=== PATIENT | female | born 1955 | race Caucasian/White ===

== ENCOUNTER → 2016-10-17 | Outpatient (CLI) | payer BC, OTHER ==
[~2016-10-17] MED LIST: CLX20 PO; CMD5 PO; CZR50 PO; OXYC-57 PO; OXYSR10 PO; SYN175 PO
[2016-10-17 13:40] LABS: THYROID STIMULATING HORMONE 1.5 uIu/ml (0.300-4.500)
== END | disposition home or self-care (01) ==
LOC: C.LABMFLN 08:08
PROVIDERS: ATTEND Internal Medicine Endocrinology, Diabetes & Metabolism
DX: E06.3 Autoimmune thyroiditis (principal); E03.9 Hypothyroidism, unspecified

== ENCOUNTER → 2017-10-11 | Outpatient (CLI) | payer OTHER ==
[~2017-10-11] MED LIST changes: +CALC1CHW71 PO; +CLOP1TAB15 PO; +HYDR12.55 PO; +LEVO137T3 PO; +LOSA1TAB38 PO; +MULT-506 PO; +NITR-5 PO; +OXYC-90 PO; +PANT1TAB4 PO; +POLY335019 PO; +TRAM-453 PO; +TURM500T PO
[2017-10-11 12:16] LABS: BASO % 1.1 %; BASO ABS # 0.06 K/uL (0-0.2); EOS % 6.5 %; EOS ABS # 0.36 K/uL (0-0.5); HEMATOCRIT 38.1 % (37-47); IG# 0.01 K/uL (0.00-0.02); LYMPH % 32.6 %; LYMPH ABS # 1.81 K/uL (1.2-3.4); MEAN CELL VOLUME 87.2 fL (80-100); MEAN CORPUSCULAR HEMOGLOBIN 27.5 pg (25-34); MEAN CORPUSCULAR HGB CONC 31.5 g/dl (32-36); MEAN PLATELET VOLUME 10.1 fL (7.4-10.4); MONO % 7.4 %; MONO ABS # 0.41 K/uL (0.11-0.59); NEUT % 52.2 %; NEUT ABS # 2.91 K/uL (1.4-6.5); PLATELET COUNT 224 K/uL (130-400); RED CELL DISTRIBUTION WIDTH CV 14.1 % (11.5-14.5); RED CELL DISTRIBUTION WIDTH SD 45.5 fL (36.4-46.3); WHITE BLOOD COUNT 5.56 K/uL (4.8-10.8)
== END | disposition home or self-care (01) ==
LOC: C.LAB 11:37
PROVIDERS: ATTEND Orthopaedic Surgery
DX: M25.461 Effusion, right knee (principal)

== ENCOUNTER → 2017-12-13 | Outpatient (CLI) | payer OTHER ==
[~2017-12-13] MED LIST changes: -CALC1CHW71 PO; -CLOP1TAB15 PO; -HYDR12.55 PO; -LEVO137T3 PO; -LOSA1TAB38 PO; -MULT-506 PO; -NITR-5 PO; -OXYC-90 PO; -PANT1TAB4 PO; -POLY335019 PO; -TRAM-453 PO; -TURM500T PO
[2017-12-13 12:22] LABS: BASO % 0.6 %; BASO ABS # 0.03 K/uL (0-0.2); EOS % 6.3 %; EOS ABS # 0.34 K/uL (0-0.5); HEMATOCRIT 39.7 % (37-47); HEMOGLOBIN 12.2 g/dL (12.0-16.0); IG# 0.01 K/uL (0.00-0.02); LYMPH % 25.1 %; LYMPH ABS # 1.36 K/uL (1.2-3.4); MEAN CELL VOLUME 85.6 fL (80-100); MEAN CORPUSCULAR HEMOGLOBIN 26.3 pg (25-34); MEAN CORPUSCULAR HGB CONC 30.7 g/dl (32-36); MEAN PLATELET VOLUME 10.4 fL (7.4-10.4); MONO % 8.7 %; MONO ABS # 0.47 K/uL (0.11-0.59); NEUT % 59.1 %; PLATELET COUNT 251 K/uL (130-400); RED CELL DISTRIBUTION WIDTH CV 14.2 % (11.5-14.5); WHITE BLOOD COUNT 5.41 K/uL (4.8-10.8)
[2017-12-13 13:24] LABS: ALBUMIN 3.7 gm/dl (3.4-5.0); ALT/SGPT 24 U/L (12-78); AST/SGOT 17 U/L (15-37); BLOOD UREA NITROGEN 15 mg/dl (7-18); CALCIUM 9.4 mg/dl (8.5-10.1); CARBON DIOXIDE 28 mmol/L (21-32); CREATININE 0.72 mg/dl (0.60-1.20); GLUCOSE 102 mg/dl (70-99); POTASSIUM 3.7 mmol/L (3.5-5.1); SODIUM 139 mmol/L (136-145)
[2017-12-13 13:27] LABS: ALKALINE PHOSPHATASE 146 U/L (45-117); CHOLESTEROL 159 mg/dl (0-200); LDL CHOLESTEROL CALCULATED 87 mg/dl; TOTAL PROTEIN 8.1 gm/dl (6.4-8.2); TRANSFERRIN 343 mg/dl (200-360)
== END | disposition home or self-care (01) ==
LOC: C.LABMFLN 07:20
PROVIDERS: ATTEND Family Medicine
DX: K21.9 Gastro-esophageal reflux disease without esophagitis (principal); M19.90 Unspecified osteoarthritis, unspecified site; Z98.84 Bariatric surgery status

== ENCOUNTER → 2018-01-25 | Outpatient (CLI) | payer OTHER | END | disposition home or self-care (01) | LOC: C.LABMFLN 14:26 | PROVIDERS: ATTEND Family Medicine | DX: R30.0 Dysuria (principal) ==

== ENCOUNTER → 2018-02-20 | Outpatient (CLI) | payer OTHER ==
[2018-02-22 12:42] LABS: ANA SCREEN TC 249X NEGATIVE (NEGATIVE)
== END | disposition home or self-care (01) ==
LOC: C.LABMFLN 07:20
PROVIDERS: ATTEND Family Medicine
DX: M19.90 Unspecified osteoarthritis, unspecified site (principal)

== ENCOUNTER → 2018-05-14 | Outpatient (CLI) | payer OTHER ==
[~2018-05-14] MED LIST changes: +CALC1CHW71 PO; +CLOP1TAB15 PO; +HYDR12.55 PO; +LEVO137T3 PO; +LOSA1TAB38 PO; +MULT-506 PO; +OPTIRAY 320 IV PRN; +PANT1TAB4 PO; +POLY335019 PO; +TURM500T PO
--- NOTE | 2018-05-14 16:49 | DIAGNOSTIC IMAGING REPORT ---
ABD/PELVIS IV AND ORAL CONT CLINICAL HISTORY: 62 years-old Female presenting with K57.92 Acute diverticulitis left lower quadrant pain. TECHNIQUE: Multidetector CT of the abdomen and pelvis was performed after the administration of oral and intravenous contrast. IV contrast: 113 mL of Optiray 320. A dose lowering technique was used consistent with the principles of ALARA (as low as reasonably achievable). COMPARISON: None. CT DOSE (mGy.cm): The estimated cumulative dose is 1031.70 mGycm. FINDINGS: Imaging System Administrator topogram: Cholecystectomy clips. Lung bases: Lungs and pleural spaces clear. Normal heart size. No pericardial or pleural effusion. Liver: Normal morphology. No liver lesion. Patent hepatic vasculature. Biliary: Mild biliary ductal prominence likely a reservoir effect in the post cholecystectomy state. Gallbladder surgically absent. Pancreas: Mild parenchymal atrophy. Spleen: Normal. Adrenal glands: Normal. Kidneys and ureters: Well-defined hypodensity in the left kidney likely simple cyst. It no nephrolithiasis. No hydronephrosis. Normal ureters. Bladder: The bladder contains a focus of gas likely indicating recent catheterization or instrumentation. Pelvic organs: Uterus surgically absent. No adnexal masses. Bowel: Diverticulosis of the sigmoid colon. No pericolonic inflammatory change or wall thickening. Oral contrast has transited to the distal transverse colon. The appendix is normal. No bowel obstruction. Postsurgical changes of antecolic Kirsty-en-Y gastric bypass. Distal anastomosis widely patent. No pathologic distention of the pancreaticobiliary limb. Decompressed gastric remnant. Peritoneal cavity: No free fluid or intraperitoneal gas. Lymph nodes: No enlarged lymph nodes in the abdomen or pelvis. Vasculature: Atherosclerosis of the normal caliber abdominal aorta. IVC patent. Abdominal wall: Normal. Musculoskeletal: Degenerative changes of the spine. IMPRESSION: 1. Diverticulosis of the sigmoid colon without evidence of diverticulitis. No acute intra-abdominal pathology. 2. Postsurgical changes of antecolic Kirsty-en-Y gastric bypass. No complication. No bowel obstruction. Electronically signed by: Phu Fisher M.D. 05/14/2018 4:48 PM Dictated Date/Time: 05/14/2018 4:41 PM
== END | disposition home or self-care (01) ==
LOC: C.CTS 14:13
PROVIDERS: ATTEND Surgery
DX: K57.30 Diverticulosis of large intestine without perforation or abscess without bleeding (principal); Z98.84 Bariatric surgery status

== ENCOUNTER 2018-05-31 08:41 | Inpatient (IN) | payer OTHER ==
[2018-05-22 12:04] VITALS: BMI 31.0
[~2018-05-31] VITALS: Ht 172.7 cm; Wt 92.5 kg
[2018-05-31] VITALS (10 sets, daily range): BP systolic 113–152; BP diastolic 55–92; PULSE 54–73; TEMP 36.3–36.9; O2SAT 91–96; Ht 172.7 cm; Wt 92.5 kg
[~2018-05-31 08:41] MED LIST changes: +ATROPINE SULFATE 0.1 MG/ML 5ML SYR IV PRN; +AZTREONAM 2000 MG in DEXTROSE 5% 100 ML IV SCH; -CLX20 PO; -CMD5 PO; -CZR50 PO; +EpHEDrine SULFATE INJ 50 MG/ML AMP IV PRN; +HYDROmorphone INJ 2 MG/ML SYR/VIAL IV PRN; +LACTATED RINGER'S 1000ML 1,000 ML IV SCH; +ONDANSETRON INJ 2 MG/ML 2 ML VIAL IV PRN; -OPTIRAY 320 IV PRN; -OXYC-57 PO; -OXYSR10 PO; +PHENYLEPHRINE 100MCG/ML 5ML SYR IV PRN; -SYN175 PO
[2018-05-31] MEDS ORDERED: MIDAZOLAM HCL 1 MG/ML 2ML VIAL ONE (09:32)
[2018-05-31] MEDS ORDERED: FENTANYL CITRATE INJ 50 MCG/1 ML 2 ML VIAL ONE (09:32)
[2018-05-31] MEDS ORDERED: NITR-5 PO (09:46)
[2018-05-31] MEDS ORDERED: HEPARIN SOD 5000 UNIT/0.5 ML CARP ONE (09:53)
--- NOTE | 2018-05-31 09:54 | History & Physical Bridge Note ---
H&P Re-Evaluation Bridge Note: I have examined the patient, reviewed the History & Physical and in the interval since the performance of the History & Physical I have noted the following changes of clinical significance: No changes noted
[2018-05-31] MEDS ORDERED: LIDOCAINE 2% JELLY 5 ML TUBE ONE (09:58)
[2018-05-31] MEDS ORDERED: ACETAMINOPHEN 1000 MG/100 ML IV IV ONE (09:58)
[2018-05-31] MEDS ORDERED: BUPIVACAINE/EPINEPHRINE 0.5% MPF 1:200,000 30 ML VIAL ONE (09:59)
[2018-05-31] MEDS ORDERED: ATROPINE SULFATE 0.1 MG/ML 5ML SYR IV PRN (10:30)
[2018-05-31] MEDS ORDERED: HYDROmorphone INJ 2 MG/ML SYR/VIAL IV PRN (10:30)
[2018-05-31] MEDS ORDERED: ONDANSETRON INJ 2 MG/ML 2 ML VIAL IV PRN ×2 (10:30→12:30)
[2018-05-31] MEDS ORDERED: KETOROLAC TROMETHAMINE 30 MG/ML VIAL IV. PRN (10:30)
[2018-05-31] MEDS ORDERED: HYDROmorphone INJ 2 MG/ML SYR/VIAL ONE (10:41)
[2018-05-31] MEDS ORDERED: PHENYLEPHRINE 100MCG/ML 5ML SYR ONE (10:43)
[2018-05-31] MEDS ORDERED: EpHEDrine SULFATE 50MG/5ML SYR ONE (10:43)
[2018-05-31] MEDS ORDERED: DEXAMETHASONE SOD INJ 4 MG/ML VIAL ONE (10:43)
[2018-05-31] MEDS ORDERED: LIDOCAINE HCL 2% 2 ML VIAL (20MG/ML) ONE (10:43)
[2018-05-31] MEDS ORDERED: ONDANSETRON INJ 2 MG/ML 2 ML VIAL ONE ×2 (10:43→12:28)
[2018-05-31] MEDS ORDERED: ROCURONIUM BROMIDE 10 MG/ML 5 ML VIAL ONE ×2 (10:44→12:28)
[2018-05-31] MEDS ORDERED: PROPOFOL IV EMULSION 10 MG/ML 20 ML VIAL ONE (10:44)
[2018-05-31] MEDS ORDERED: GLYCOPYRROLATE INJ 0.2 MG/ML VIAL ONE (12:28)
[2018-05-31] MEDS ORDERED: NEOSTIGMINE METHYLSULFATE 5 MG/5 ML SYR ONE (12:28)
[2018-05-31] MEDS ORDERED: MoRPHine SULFATE 2 MG/ML CARP IV PRN (12:30)
--- NOTE | 2018-05-31 13:28 | Anesthesiology Progress Note ---
Anesthesia Post Op Note Date & Time May 31, 2018 at 13:28 Vital Signs Pain Intensity: 0 Vital Signs Past 12 Hours Date Time Temp Pulse Resp B/P (MAP) Pulse Ox O2 Delivery O2 Flow Rate FiO2 05/31/18 13:20 59 16 123/69 96 Room Air 05/31/18 13:10 55 16 122/68 99 Oxymask 10 05/31/18 13:00 57 16 123/69 96 Oxymask 10 05/31/18 12:54 36.6 59 16 122/66 98 Oxymask 10 05/31/18 09:58 Room Air 98 05/31/18 09:31 36.9 62 18 152/87 Notes Mental Status: alert / awake / arousable, participated in evaluation Pt Amnestic to Procedure: Yes Nausea / Vomiting: adequately controlled Pain: adequately controlled Airway Patency, RR, SpO2: stable & adequate BP & HR: stable & adequate Hydration State: stable & adequate Anesthetic Complications: no major complications apparent
[2018-05-31] MEDS ORDERED: KETOROLAC TROMETHAMINE 30 MG/ML VIAL ONE (13:29)
[2018-05-31] MEDS ORDERED: PATIENT'S ALLERGY INFO NEEDS ENTERED SCH (13:45)
--- NOTE | 2018-05-31 14:10 | [facility] Operative Report ---
Operative Report Operative Date May 31, 2018. Pre-Operative Diagnosis Diverticulitis/recurrent Post-Operative Diagnosis Diverticular disease; adhesions Procedure(s) Performed Laparoscopic Low Anterior Resection, Enterolysis Surgeon Dr. Hoffman Internet Marketing Director Surgeon(s) YANET Alicia PA-C Estimated Blood Loss 20 cc Specimens A: Recto sigmoid Anesthesia Type General Description of Procedure After informed consent was obtained the patient was taken to the operating room and placed in supine. After successful intubation the patient was placed in a low lithotomy position on yellowfin stirrups. A Quiroz catheter was placed. The abdomen/perineum was then sterilely prepped and draped in usual fashion. I began with an infraumbilical incision through her old scar line with an11 blade scalpel. This was carried down through the soft tissues using electrocautery. The anterior rectus fascia was opened using electrocautery and 2 #0 Vicryl stay sutures were placed. Finger penetration was used to enter the peritoneum and a finger sweep was performed to take down any underlying adhesions. A 12 mm Singh trocar was placed in the abdomen was insufflated to 18 mmHg. The laparoscope was inserted and the abdomen was examined in 360 degrees. a right lower quadrant 12 mm port, a right mid abdominal 5 mm port and eventually a left lower quadrant 5 mm port would be placed. The patient was placed in a Trendelenburg position and slightly air planed to the right. There were a fair amount of adhesions in the lower abdomen involving primarily the small bowel and sigmoid colon. We tediously took these down using small amounts of the harmonic scalpel as well as sharp scissor lysis. Once we were able to get all the adhesions down I was then able to reduce the small bowel into the upper abdomen. we began by examining the sigmoid colon and left colon. There was obvious chronic diverticular disease. It was particularly thickened in the rectosigmoid region. I began by mobilizing the colon along the white line of Toldt using blunt dissection as well as small amounts of harmonic scalpel. I carried this almost to the spleen and then we carried it distally down over the pelvic brim to the peritoneal reflection. We were able to visualize the left ureter to keep it out of harm's way. Next I found an area of the left colon where there appeared to be no thickened bowel but rather normal soft noninflamed colon. I made a small window in the mesentery. I transected the colon here using a CHRITSEN purple cartridge stapler. We then used a harmonic scalpel to take down the mesentery heading towards the rectum. I had to use a harmonic scalpel to continue to take lateral pedicles as well as go down past the peritoneal reflection. It was obvious we would have to take the entire sigmoid colon and the proximal portion of the rectum as this was all involved. I was able to make a small window underneath the rectum itself using primarily blunt dissection. I then used several firings of a CHRISTEN reticulating stapler to transect the rectum. We then used the harmonic scalpel to continue to take down the mesentery until we had the specimen completely transected. We then extended the left lower quadrant trocar site using a 15 blade scalpel and cautery. We were able to remove the specimen and sent it off the pathology. We then delivered the proximal stapled end of the left colon through the same incision. We cut off the staple line and then used 2-0 silk to create a pursestring. We used sizers to estimate the lumen size to be 25 mm. The anvil of a 25 mm circular stapler was placed into the end the pursestring used to secure it into place. This was then placed back into the abdomen. The fascia was closed using 0 Vicryl in a running fashion. I changed my gloves. We then reinsufflated the abdomen. The left colon laid well down next to the remaining rectal stump without any tension. We used sizers to come in the rectal stump followed by the handle of the EEA. The spike was deployed anterior to the staple line. The anvil was connected to the handle and they were secured together and fired creating a functional end-to-end anastomosis. Both donut rings were intact. We submerged the anastomosis and water and clamped off the colon. We then sent insufflated it with a rigid sigmoidoscope. It was completely airtight with no evidence of leak. There is adequate hemostasis at the end of the case. A thorough irrigation was performed. A 10 flat Sergey- Radford drain was placed into the pelvis and brought out through 1 of the trocar sites and secured to the skin using 2-0 silk. Final look around the abdomen showed no other gross abnormalities. The trochars were all removed and the abdomen was desufflated. The fascia the camera port was closed using 0 Vicryl in [id number] fashion. All the wounds were irrigated and closed using 4-0 Monocryl for the trocar sites and 3-0 Vicryl and 4-0 Monocryl for the left lower quadrant larger incision. Marcaine was injected around them for postoperative analgesia and sterile dressings were applied. The patient was awakened extubated and transferred to recovery in stable condition. Both of my physician's assistants were present through the entire case. they helped prep the patient. They helped with retraction as well as running the camera as well as the anastomosis wound closure and dressing placement. I attest to the content of the Intraoperative Record and any orders documented therein. Any exceptions are noted below.
[2018-05-31] MEDS: ACETAMINOPHEN IV 100 ML IV SCH (17:35)
[2018-05-31] MEDS: LACTATED RINGER'S 1000ML 1,000 ML IV SCH (17:35)
[2018-05-31] MEDS: AZTREONAM IV 2,000 MG in DEXTROSE 5% 100ML 100 ML IV SCH (18:17)
[2018-05-31] MEDS ORDERED: HYDROmorphone INJ 0.5 MG/0.5 ML SYR IV PRN (22:15)
[2018-05-31] MEDS ORDERED: KETOROLAC TROMETHAMINE 30 MG/ML VIAL IV ONE (22:30)
[2018-06-01] MEDS: LACTATED RINGER'S 1000ML 1,000 ML IV SCH ×3 (02:12→17:10)
[2018-06-01] MEDS: ACETAMINOPHEN IV 100 ML IV SCH ×3 (02:13→17:11)
[2018-06-01] MEDS: AZTREONAM IV 2,000 MG in DEXTROSE 5% 100ML 100 ML IV SCH ×2 (02:31→09:22)
[2018-06-01 03:18] VITALS: BP 117/74; PULSE 58; TEMP 36.5; O2SAT 92
[2018-06-01] MEDS ORDERED: NURSING DECISION MEDICATION ORDER SCH (05:45)
[2018-06-01] MEDS: LEVOTHYROXINE 137 MCG TAB PO SCH (06:02)
--- NOTE | 2018-06-01 06:59 | Surgery Progress Note ---
Surgery Progress Note Date of Service Jun 01, 2018. Subjective Post OP Day: 1 + feeling well, + ambulating, + pain controlled, + diet (Chips/sips), No complaints, No bowel movement, No flatus, No nausea, No vomiting Reports she is hungry and wants her flanagan out. Objective Vital Signs: Date Time Temp Pulse Resp B/P (MAP) Pulse Ox O2 Delivery O2 Flow Rate FiO2 06/01/18 03:18 36.5 58 16 117/74 (88) 92 Room Air 05/31/18 22:59 36.6 60 16 118/71 (87) 94 Room Air 05/31/18 19:58 Room Air 05/31/18 19:12 36.9 61 16 113/69 (84) 91 Room Air 05/31/18 17:15 36.9 64 93 125/81 (96) 93 Room Air 05/31/18 16:04 36.5 73 16 134/55 (81) 96 Nasal Cannula 2.0 05/31/18 15:04 36.5 56 16 115/61 (79) 94 Nasal Cannula 2.0 05/31/18 14:40 36.5 54 18 122/92 (102) 91 Nasal Cannula 2.0 05/31/18 14:24 93 Nasal Cannula 2.0 05/31/18 14:21 36.3 56 16 118/71 (87) 95 Nasal Cannula 2.0 05/31/18 14:19 95 Nasal Cannula 2.0 05/31/18 13:30 51 16 124/71 95 Nasal Cannula 2 05/31/18 13:20 59 16 123/69 96 Room Air 05/31/18 13:10 55 16 122/68 99 Oxymask 10 05/31/18 13:00 57 16 123/69 96 Oxymask 10 05/31/18 12:54 36.6 59 16 122/66 98 Oxymask 10 05/31/18 09:58 Room Air 98 05/31/18 09:31 36.9 62 18 152/87 Physical Exam: ELDA drainage (15ml this am, sang) General Appearance: no apparent distress Head: atraumatic Respiratory/Chest: no respiratory distress Abdomen: soft, + distended (mild), + tenderness (Incisional TTP) Incision(s): clean, intact, no erythema Laboratory Results: Results Past 24 Hours Test 06/01/18 04:44 Range/Units Assessment & Plan POD #1 s/p lap low anterior resection for diverticular disease. pain controlled. Abdomen soft, mild distention, incisional tenderness ( expected). Ambulating as tolerated. Flanagan in place. No N/V. Patient reports she is hungry. No BM or flatus yet. D/C flanagan, Clears this AM. Continue ambulation as tolerated. Contact with questions or concerns. As above looks great can have some sips of clears. no issues pod #1. [facility] covering for weekend.
[2018-06-01] MEDS ORDERED: TRAM-453 PO (07:25)
--- NOTE | 2018-06-01 07:26 | Discharge Instructions ---
Discharge Instructions Date of Service Jun 01, 2018. Admission Reason for Admission: Diverticular Disease Discharge Discharge Diagnosis / Problem: laparoscopic sigmoid colectomy Discharge Goals Goal(s): Decrease discomfort Activity Recommendations Activity Limitations: as noted below Lifting Limitations: no more than 10 pounds Shower/Bathe: no limitations Driving or Machine Use: resume 3 days after discharge . Instructions / Follow-Up Instructions / Follow-Up Dr. Hoffman in 1-2 weeks as planned, call [phone] if you have any questions Current Hospital Diet Patient's current hospital diet: Discharge Diet Recommended Diet: Low Fat Diet Procedures Procedures Performed: Laparoscopic Low Anterior Resection, Enterolysis Pending Studies Studies pending at discharge: yes List of pending studies: pathology Medical Emergencies . Who to Call and When: Medical Emergencies: If at any time you feel your situation is an emergency, please call 911 immediately. . Non-Emergent Contact Non-Emergency issues call your: Surgeon Call Non-Emergent contact if: you have a fever, temperature is above 101.5, your pain is not controlled, wound has increased redness, wound has increased pain, you have any medication questions . "Provider Documentation" section prepared by Bc Craig. .
[2018-06-01] MEDS ORDERED: TRAMADOL HCL 50 MG TAB PO PRN (07:30)
[2018-06-01 07:45] VITALS: BP 131/77; PULSE 56; TEMP 36.9; O2SAT 97
[2018-06-01 08:15] LABS: HEMATOCRIT 32.9 % (37-47); HEMOGLOBIN 10.3 g/dL (12.0-16.0); IG# 0.03 K/uL (0.00-0.02); LYMPH ABS # 0.74 K/uL (1.2-3.4); MEAN CELL VOLUME 84.6 fL (80-100); MEAN CORPUSCULAR HEMOGLOBIN 26.5 pg (25-34); MEAN CORPUSCULAR HGB CONC 31.3 g/dl (32-36); MONO % 6.1 %; MONO ABS # 0.64 K/uL (0.11-0.59); NEUT % 86.6 %; NEUT ABS # 9.14 K/uL (1.4-6.5); PLATELET COUNT 210 K/uL (130-400); RED CELL DISTRIBUTION WIDTH CV 15.2 % (11.5-14.5); RED CELL DISTRIBUTION WIDTH SD 46.7 fL (36.4-46.3); WHITE BLOOD COUNT 10.55 K/uL (4.8-10.8)
[2018-06-01 08:46] LABS: CALCIUM 8.8 mg/dl (8.5-10.1); CREATININE 0.75 mg/dl (0.60-1.20); POTASSIUM 3.8 mmol/L (3.5-5.1)
[2018-06-01] MEDS: PANTOprazole SOD 40 MG TAB PO SCH (08:55)
[2018-06-01 09:43] VITALS: O2SAT 97
[2018-06-01] MEDS: ENOXAPARIN 40 MG/0.4 ML SYR SQ SCH (10:39)
[2018-06-01 11:35] VITALS: BP 138/82; PULSE 53; TEMP 36.9; O2SAT 97
[2018-06-01] MEDS ORDERED: NURSING VERBAL MED ORDER ONE (13:30)
[2018-06-01] MEDS: OXYCODONE HCL IR 5 MG TAB (IMMEDIATE RELEASE) PO PRN (14:12)
[2018-06-01 15:11] VITALS: BP 125/78; PULSE 54; TEMP 36.9; O2SAT 93
[2018-06-01 22:50] VITALS: BP 122/74; PULSE 51; TEMP 36.9; O2SAT 93
[2018-06-02] MEDS: LACTATED RINGER'S 1000ML 1,000 ML IV SCH (00:31)
[2018-06-02] MEDS: ACETAMINOPHEN IV 100 ML IV SCH ×2 (02:23→09:15)
[2018-06-02] MEDS: LEVOTHYROXINE 137 MCG TAB PO SCH (05:50)
[2018-06-02 07:43] VITALS: BP 118/82; PULSE 51; TEMP 37; O2SAT 95
[2018-06-02 08:00] LABS: BASO % 0.3 %; BASO ABS # 0.02 K/uL (0-0.2); EOS % 2.2 %; EOS ABS # 0.14 K/uL (0-0.5); HEMOGLOBIN 9.5 g/dL (12.0-16.0); IG# 0.02 K/uL (0.00-0.02); LYMPH % 26.1 %; LYMPH ABS # 1.68 K/uL (1.2-3.4); MEAN CELL VOLUME 87.1 fL (80-100); MEAN CORPUSCULAR HEMOGLOBIN 26.7 pg (25-34); MEAN CORPUSCULAR HGB CONC 30.6 g/dl (32-36); MEAN PLATELET VOLUME 10.2 fL (7.4-10.4); MONO ABS # 0.45 K/uL (0.11-0.59); NEUT % 64.1 %; NEUT ABS # 4.13 K/uL (1.4-6.5); PLATELET COUNT 163 K/uL (130-400); RED CELL DISTRIBUTION WIDTH CV 15.6 % (11.5-14.5); RED CELL DISTRIBUTION WIDTH SD 49.9 fL (36.4-46.3); WHITE BLOOD COUNT 6.44 K/uL (4.8-10.8)
[2018-06-02 08:42] LABS: CALCIUM 8.8 mg/dl (8.5-10.1); CREATININE 0.62 mg/dl (0.60-1.20); POTASSIUM 3.5 mmol/L (3.5-5.1)
--- NOTE | 2018-06-02 08:55 | Surgery Progress Note ---
Surgery Progress Note Date of Service Jun 02, 2018. Subjective Post OP Day: 2 (lap sigmoid) + feeling well, + ambulating, + flatus, + pain controlled (about 4/10 currently managing without pain meds), + diet (tolerating clears), No bowel movement, No nausea Objective Vital Signs: Date Time Temp Pulse Resp B/P (MAP) Pulse Ox O2 Delivery O2 Flow Rate FiO2 06/02/18 07:43 37.0 51 16 118/82 (94) 95 Room Air 06/02/18 00:30 Room Air 06/01/18 22:50 36.9 51 16 122/74 (90) 93 Room Air 06/01/18 19:00 Room Air 06/01/18 15:11 36.9 54 18 125/78 (94) 93 Room Air 06/01/18 11:35 36.9 53 20 138/82 (100) 97 Room Air 06/01/18 09:43 97 Room Air Physical Exam: ELDA drainage (serosanguinous 55 cc) General Appearance: WD/WN, no apparent distress Head: normocephalic, atraumatic Neck: supple Respiratory/Chest: normal breath sounds, no respiratory distress, no accessory muscle use Cardiovascular: regular rate, rhythm, no murmur Abdomen: normal bowel sounds, non tender, soft, + distended (mild) Incision(s): clean, dry, intact Extremities: no pedal edema Laboratory Results: Results Past 24 Hours Test 06/01/18 09:48 06/02/18 07:34 Range/Units Prothrombin Time 10.6 9.0-12.0 SECONDS Prothromb Time International Ratio 1.0 0.9-1.1 White Blood Count 6.44 4.8-10.8 K/uL Red Blood Count 3.56 4.2-5.4 M/uL Hemoglobin 9.5 12.0-16.0 g/dL Hematocrit 31.0 37-47 % Mean Corpuscular Volume 87.1 80-100 fL Mean Corpuscular Hemoglobin 26.7 25-34 pg Mean Corpuscular Hemoglobin Concent 30.6 32-36 g/dl Platelet Count 163 130-400 K/uL Mean Platelet Volume 10.2 7.4-10.4 fL Neutrophils (%) (Auto) 64.1 % Lymphocytes (%) (Auto) 26.1 % Monocytes (%) (Auto) 7.0 % Eosinophils (%) (Auto) 2.2 % Basophils (%) (Auto) 0.3 % Neutrophils # (Auto) 4.13 1.4-6.5 K/uL Lymphocytes # (Auto) 1.68 1.2-3.4 K/uL Monocytes # (Auto) 0.45 0.11-0.59 K/uL Eosinophils # (Auto) 0.14 0-0.5 K/uL Basophils # (Auto) 0.02 0-0.2 K/uL RDW Standard Deviation 49.9 36.4-46.3 fL RDW Coefficient of Variation 15.6 11.5-14.5 % Immature Granulocyte % (Auto) 0.3 % Immature Granulocyte # (Auto) 0.02 0.00-0.02 K/uL Sodium Level 144 136-145 mmol/L Potassium Level 3.5 3.5-5.1 mmol/L Chloride Level 107 98-107 mmol/L Carbon Dioxide Level 30 21-32 mmol/L Anion Gap 6.0 3-11 mmol/L Blood Urea Nitrogen 9 7-18 mg/dl Creatinine 0.62 0.60-1.20 mg/dl Est Creatinine Clear Calc Drug Dose 110.4 ml/min Estimated GFR () 111.2 Estimated GFR (Non- 96.0 BUN/Creatinine Ratio 13.9 10-20 Random Glucose 83 70-99 mg/dl Calcium Level 8.8 8.5-10.1 mg/dl Assessment & Plan POD #2 lap sigmoid resection for diverticulitis. Doing well. Will advance to full liquids today. continue to ambulate. Keep ELDA for now.
[2018-06-02] MEDS: PANTOprazole SOD 40 MG TAB PO SCH (09:15)
[2018-06-02] MEDS: ENOXAPARIN 40 MG/0.4 ML SYR SQ SCH (09:16)
[2018-06-02] MEDS: OXYCODONE HCL IR 5 MG TAB (IMMEDIATE RELEASE) PO PRN ×2 (09:40→21:03)
[2018-06-02] MEDS: SODIUM CHLOR 0.45% + 20MEQ KCL 1,000 ML IV SCH ×2 (10:41→23:23)
[2018-06-02 12:00] VITALS: BP 146/86; PULSE 50; TEMP 36.9; O2SAT 93
[2018-06-02 15:16] VITALS: BP 142/82; PULSE 54; TEMP 36.7; O2SAT 97
[2018-06-02 23:30] VITALS: BP 152/82; PULSE 56; TEMP 36.6; O2SAT 95
[2018-06-03] MEDS: LEVOTHYROXINE 137 MCG TAB PO SCH (05:29)
[2018-06-03 06:10] LABS: BASO % 0.4 %; BASO ABS # 0.02 K/uL (0-0.2); EOS % 4.5 %; EOS ABS # 0.24 K/uL (0-0.5); HEMATOCRIT 33.7 % (37-47); HEMOGLOBIN 10.4 g/dL (12.0-16.0); LYMPH % 27.8 %; MEAN CELL VOLUME 86.2 fL (80-100); MEAN CORPUSCULAR HEMOGLOBIN 26.6 pg (25-34); MEAN CORPUSCULAR HGB CONC 30.9 g/dl (32-36); MEAN PLATELET VOLUME 10.2 fL (7.4-10.4); MONO % 7.2 %; MONO ABS # 0.39 K/uL (0.11-0.59); NEUT % 60.1 %; NEUT ABS # 3.24 K/uL (1.4-6.5); PLATELET COUNT 182 K/uL (130-400); RED CELL DISTRIBUTION WIDTH CV 15.4 % (11.5-14.5); RED CELL DISTRIBUTION WIDTH SD 48.3 fL (36.4-46.3); WHITE BLOOD COUNT 5.39 K/uL (4.8-10.8)
[2018-06-03 06:41] LABS: CALCIUM 8.4 mg/dl (8.5-10.1); CREATININE 0.6 mg/dl (0.60-1.20); POTASSIUM 3.3 mmol/L (3.5-5.1)
[2018-06-03 07:35] VITALS: BP 157/84; PULSE 49; TEMP 36.7; O2SAT 98
[2018-06-03] MEDS: ENOXAPARIN 40 MG/0.4 ML SYR SQ SCH (08:53)
[2018-06-03] MEDS: PANTOprazole SOD 40 MG TAB PO SCH (08:53)
[2018-06-03] MEDS: OXYCODONE HCL IR 5 MG TAB (IMMEDIATE RELEASE) PO PRN ×2 (08:54→18:04)
--- NOTE | 2018-06-03 10:25 | Surgery Progress Note ---
Surgery Progress Note Date of Service Jun 03, 2018. Subjective Post OP Day: 3 (lap sigmoid resection) + feeling well, + flatus, + pain controlled The "swirlies" in the visual thompson she experienced yesterday have resolved. Ate her breakfast too much too fast and felt bloated afterwards. Better now. Hungry for more food. Passing flatus but no bowel movement yet. Objective Vital Signs: Date Time Temp Pulse Resp B/P (MAP) Pulse Ox O2 Delivery O2 Flow Rate FiO2 06/03/18 07:35 36.7 49 16 157/84 (108) 98 Room Air 06/03/18 07:25 Room Air 06/02/18 23:30 36.6 56 16 152/82 (105) 95 Room Air 06/02/18 23:15 Room Air 06/02/18 15:30 Room Air 06/02/18 15:16 36.7 54 16 142/82 (102) 97 Room Air 06/02/18 12:00 36.9 50 16 146/86 (106) 93 Room Air Physical Exam: ELDA drainage (85 cc serosanguinous) General Appearance: WD/WN, no apparent distress Respiratory/Chest: normal breath sounds, no respiratory distress Cardiovascular: regular rate, rhythm Abdomen: normal bowel sounds, non tender, soft, + distended (mild) Incision(s): clean, dry, intact Extremities: no pedal edema Laboratory Results: Results Past 24 Hours Test 06/03/18 05:44 Range/Units White Blood Count 5.39 4.8-10.8 K/uL Red Blood Count 3.91 4.2-5.4 M/uL Hemoglobin 10.4 12.0-16.0 g/dL Hematocrit 33.7 37-47 % Mean Corpuscular Volume 86.2 80-100 fL Mean Corpuscular Hemoglobin 26.6 25-34 pg Mean Corpuscular Hemoglobin Concent 30.9 32-36 g/dl Platelet Count 182 130-400 K/uL Mean Platelet Volume 10.2 7.4-10.4 fL Neutrophils (%) (Auto) 60.1 % Lymphocytes (%) (Auto) 27.8 % Monocytes (%) (Auto) 7.2 % Eosinophils (%) (Auto) 4.5 % Basophils (%) (Auto) 0.4 % Neutrophils # (Auto) 3.24 1.4-6.5 K/uL Lymphocytes # (Auto) 1.50 1.2-3.4 K/uL Monocytes # (Auto) 0.39 0.11-0.59 K/uL Eosinophils # (Auto) 0.24 0-0.5 K/uL Basophils # (Auto) 0.02 0-0.2 K/uL RDW Standard Deviation 48.3 36.4-46.3 fL RDW Coefficient of Variation 15.4 11.5-14.5 % Immature Granulocyte % (Auto) 0.0 % Immature Granulocyte # (Auto) 0.00 0.00-0.02 K/uL Sodium Level 140 136-145 mmol/L Potassium Level 3.3 3.5-5.1 mmol/L Chloride Level 105 98-107 mmol/L Carbon Dioxide Level 25 21-32 mmol/L Anion Gap 10.0 3-11 mmol/L Blood Urea Nitrogen 6 7-18 mg/dl Creatinine 0.60 0.60-1.20 mg/dl Est Creatinine Clear Calc Drug Dose 114.1 ml/min Estimated GFR () 112.4 Estimated GFR (Non- 97.0 BUN/Creatinine Ratio 9.8 10-20 Random Glucose 104 70-99 mg/dl Calcium Level 8.4 8.5-10.1 mg/dl Assessment & Plan POD #3 lap sigmoid resection for diverticulitis. Doing well. Will advance to low fiber diet today. continue to ambulate. Keep ELDA for now. Hypokalemia - will replete.
[2018-06-03] MEDS ORDERED: POTASSIUM CHLR 10 MEQ / WTR 100 ML IV SCH (10:45)
[2018-06-03] MEDS: SODIUM CHLOR 0.45% + 20MEQ KCL 1,000 ML IV SCH (12:40)
[2018-06-03] MEDS ORDERED: NURSING VERBAL MED ORDER ONE (13:15)
[2018-06-03 15:10] VITALS: BP 129/80; PULSE 53; TEMP 36.9; O2SAT 95
[2018-06-03 15:20] VITALS: O2SAT 95
[2018-06-03] MEDS: POTASSIUM CHLORIDE 20 MEQ TABCR PO SCH (21:09)
[2018-06-03 23:20] VITALS: BP 149/89; PULSE 56; TEMP 36.4; O2SAT 95
[2018-06-04] VITALS (8 sets, daily range): BP systolic 128–148; BP diastolic 81–89; PULSE 61–68; TEMP 36.7–36.9; O2SAT 94–97
[2018-06-04] MEDS: LEVOTHYROXINE 137 MCG TAB PO SCH (05:39)
[2018-06-04] MEDS: OXYCODONE HCL IR 5 MG TAB (IMMEDIATE RELEASE) PO PRN ×3 (05:40→19:41)
--- NOTE | 2018-06-04 09:28 | Surgery Progress Note ---
Surgery Progress Note Date of Service Jun 04, 2018. Subjective Post OP Day: 4 + feeling well, + flatus, + diet (regular), No bowel movement, No nausea Objective Vital Signs: Date Time Temp Pulse Resp B/P (MAP) Pulse Ox O2 Delivery O2 Flow Rate FiO2 06/04/18 08:03 36.7 68 18 142/84 (103) 97 Room Air 06/04/18 07:50 Room Air 06/03/18 23:20 Room Air 06/03/18 23:20 36.4 56 16 149/89 (109) 95 Room Air 06/03/18 15:20 95 Room Air 06/03/18 15:10 36.9 53 16 129/80 (96) 95 Room Air Physical Exam: ELDA drainage (20 cc) Abdomen: soft Incision(s): clean Assessment & Plan s/p lap LAR for recurrent diverticulitis tolerating diet but no BM yet will keep drain until bowels moving seen earlier by Dr. Hoffman
[2018-06-04] MEDS ORDERED: OXYC-90 PO (09:30)
[2018-06-04] MEDS: POTASSIUM CHLORIDE 20 MEQ TABCR PO SCH ×2 (09:35→20:43)
[2018-06-04] MEDS: PANTOprazole SOD 40 MG TAB PO SCH (09:35)
[2018-06-04] MEDS: ENOXAPARIN 40 MG/0.4 ML SYR SQ SCH (09:35)
[2018-06-04] MEDS ORDERED: NURSING VERBAL MED ORDER ONE (12:00)
[2018-06-05] MEDS: OXYCODONE HCL IR 5 MG TAB (IMMEDIATE RELEASE) PO PRN ×2 (04:48→10:31)
[2018-06-05] MEDS: LEVOTHYROXINE 137 MCG TAB PO SCH (05:57)
[2018-06-05 07:17] VITALS: BP 130/77; PULSE 54; TEMP 36.8; O2SAT 93
--- NOTE | 2018-06-05 07:57 | Surgery Progress Note ---
Surgery Progress Note Date of Service Jun 05, 2018. Subjective Post OP Day: 5 + feeling well no bm yet but passing gas. tolerating regular diet. no nausea. feels good. Objective Vital Signs: Date Time Temp Pulse Resp B/P (MAP) Pulse Ox O2 Delivery O2 Flow Rate FiO2 06/05/18 07:17 36.8 54 18 130/77 (94) 93 Room Air 06/04/18 23:30 96 Room Air 2.0 98 06/04/18 23:00 36.7 61 16 148/81 (103) 96 Room Air 06/04/18 15:52 36.9 61 18 147/89 (108) 94 Room Air 06/04/18 15:10 97 Room Air 06/04/18 11:46 36.8 64 20 128/84 (99) 97 Room Air 06/04/18 10:01 97 Room Air 06/04/18 09:56 94 Room Air 06/04/18 08:03 36.7 68 18 142/84 (103) 97 Room Air General Appearance: no apparent distress Respiratory/Chest: no respiratory distress, no accessory muscle use Abdomen: non distended, soft Incision(s): clean, dry, intact, no erythema Assessment & Plan 06/05/18 doing great discussed path ok for d/c instructions given. POD #1 s/p lap low anterior resection for diverticular disease. pain controlled. Abdomen soft, mild distention, incisional tenderness ( expected). Ambulating as tolerated. Flanagan in place. No N/V. Patient reports she is hungry. No BM or flatus yet. D/C flanagan, Clears this AM. Continue ambulation as tolerated. Contact with questions or concerns. As above looks great can have some sips of clears. no issues pod #1. [facility] covering for weekend. POD #1 s/p lap low anterior resection for diverticular disease. pain controlled. Abdomen soft, mild distention, incisional tenderness ( expected). Ambulating as tolerated. Flanagan in place. No N/V. Patient reports she is hungry. No BM or flatus yet. D/C flanagan, Clears this AM. Continue ambulation as tolerated. Contact with questions or concerns. As above looks great can have some sips of clears. no issues pod #1. [facility] covering for weekend.
[2018-06-05] MEDS: PANTOprazole SOD 40 MG TAB PO SCH (09:09)
[2018-06-05] MEDS: ENOXAPARIN 40 MG/0.4 ML SYR SQ SCH (09:09)
[2018-06-05] MEDS: POTASSIUM CHLORIDE 20 MEQ TABCR PO SCH (09:10)
--- NOTE | 2018-06-05 09:48 | Discharge Summary ---
Discharge Summary Date of Service Jun 05, 2018. Admission Date/Reason May 31, 2018 at 12:31 Diverticular Disease. Discharge Date/Disposition Jun 05, 2018 Home Diagnosis Principal Diagnosis: Recurrent diverticulitis Hypokalemia Secondary Diagnoses/Problems: GERD Hypertension Depression/anxiety H/o TIA Procedure(s) Performed Laparoscopic Low Anterior Resection, Enterolysis Medication Reconciliation New Medications: Oxycodone Ir (Roxicodone Ir) 5 Mg Tab 5 MG PO Q4H PRN for Severe Pain, #15 TAB Continued Medications: Calcium Carbonate-Cholecalcife (Calcium Chews) 1 Chw Chw 2 TAB PO DAILY Clopidogrel (Plavix) 75 Mg Tab 75 MG PO QAM, TAB PT TO STOP 1 WEEK PRIOR TO SURGERY PER SURGEON OFFICE Hydrochlorothiazide (Hydrochlorothiazide) 12.5 Mg Tab 1 TAB PO QAM for 90 Days, #90 TAB 3 Refills Levothyroxine Sodium (Levothyroxine Sodium) 137 Mcg Tab 1 TAB PO QAM for 90 Days, #90 TAB 3 Refills Losartan Potassium (Cozaar) 100 Mg Tab 100 MG PO QAM, TAB Multivitamin (Multivitamin) Tab 1 TAB PO DAILY, TAB Nitrofurantoin Monohyd Macrocr (Macrobid) 100 Mg Cap 100 MG PO BID, #6 CAP Pantoprazole (Pantoprazole Sodium) 40 Mg Tab 1 TAB PO QAM Turmeric (Curcuma Longa) (Turmeric) 500 Mg Tab 1 TAB PO UD Discontinued Medications: Polyethylene Glycol 3350 (Miralax) 1 Pow Pow 17 GM PO QAM, GM Referrals Follow up Referrals: Surgery Referral - Within 1-2 Weeks with Chi Hoffman D.O. Admission Physical Exam As per Admitting History & Physical. Hospital Course 62 y/o female with recurrent diverticulitis taken to the operating room for laparoscopic low anterior resection for significant diverticular disease in the pelvis. She was admitted to the surgical floor. POD 1 flanagan cath was removed and she was started on clear liquids. Lovenox was began for DVT prophylaxis. She was able to tolerate full liquids on POD and advanced to low fiber diet on day 3. Potassium was 3.3 and was supplemented orally. She was passing flatus and tolerating low fiber diet over days 4 and 5. She was taking oxycodone for pain. Her abdomen was soft and incisions were clean and dry with some ecchymosis around the LLQ incision. Although her bowels had not yet moved on day 5 she was otherwise doing well and was stable for discharge home. ELDA drain was removed prior to discharge. Discharge Instructions Please refer to the electronic Patient Visit Report (Discharge Instructions) for additional information.
[2018-06-05 09:56] VITALS: BP 130/77; PULSE 54; TEMP 36.8; O2SAT 93
== END 2018-06-05 10:57 | disposition home or self-care (01) | DRG 331 ==
LOC: C.ACU 08:41 → C.MSN 12:31 → ENRESERV 13:20
PROVIDERS: ADMIT Surgery; ATTEND Surgery
PROC: 0DBP4ZZ Excision of Rectum, Percutaneous Endoscopic Approach (ICD-10-PCS; principal; 2018-05-31 11:30)
PROC: 0DBN4ZZ Excision of Sigmoid Colon, Percutaneous Endoscopic Approach (ICD-10-PCS; principal; 2018-05-31 11:30)
DX: K57.32 Diverticulitis of large intestine without perforation or abscess without bleeding (principal); I10 Essential (primary) hypertension; K21.9 Gastro-esophageal reflux disease without esophagitis; F32.9 Major depressive disorder, single episode, unspecified; Z86.73 Personal history of transient ischemic attack (TIA), and cerebral infarction without residual deficits; Z98.84 Bariatric surgery status; E87.6 Hypokalemia; G40.909 Epilepsy, unspecified, not intractable, without status epilepticus; Z80.0 Family history of malignant neoplasm of digestive organs; Z83.3 Family history of diabetes mellitus; Z88.2 Allergy status to sulfonamides; Z91.040 Latex allergy status